=== PATIENT | female | born 1955 | race Hispanic/Latino ===

== ENCOUNTER 2017-10-13 15:08 | Emergency (ER) | payer SELFPAY ==
[2017-10-13 15:08] VITALS: BMI 42.9
[2017-10-13 15:33] VITALS: BP 155/82; PULSE 85; TEMP 98.1; O2SAT 97
[2017-10-13 15:35] VITALS: RESP 16
--- NOTE | 2017-10-13 16:46 | ED PDOC ---
Lower Extremity Pain/Injury Time Seen by Provider: 10/13/17 16:09 Chief Complaint (Nursing): Lower Extremity Problem/Injury History Per: Patient (presents with complaints of knee pain that has been ongoing for one month. States that she had US done at [facility], [place] that did not reveal blood clots. She also had ankle brachial index done what did not reveal pathology. She has not been able to see her PMD. States that Naproxen does not work and that only percocet works.) History/Exam Limitations: no limitations Current Symptoms Are (Timing): Still Present Severity: Moderate Past Medical History Reviewed: Historical Data, Nursing Documentation, Vital Signs Vital Signs: Last Vital Signs Temp 98.1 F 10/13/17 15:33 Pulse 85 10/13/17 15:33 Resp 16 10/13/17 15:33 BP 155/82 H 10/13/17 15:33 Pulse Ox 97 10/13/17 15:33 - Medical History PMH: Anxiety, Arthritis, Asthma, Back Problems, Depression, HTN, Hypercholesterolemia, Hyperlipidemia, Migraine, Chronic Pain (lower back pain/ lumbar radiculopathy) Denies: Chronic Kidney Disease - Surgical History Surgical History: No Surg Hx - Family History Family History: States: Unknown Family Hx - Living Arrangements Living Arrangements: With Family - Immunization History Hx Tetanus Toxoid Vaccination: Yes Hx Influenza Vaccination: Yes Hx Pneumococcal Vaccination: No - Home Medications Home Medications: Ambulatory Orders Medication Instructions Recorded Montelukast [Singulair] 10 mg PO DAILY 12/13/14 Albuterol HFA [Ventolin HFA 90 2 puff IH [id number] 08/25/15 mcg/actuation (8 g)] Diovan 80 mg PO DAILY 06/17/16 oxyCODONE/Acetaminophen [Percocet 1 tab PO Q6 PRN 08/01/16 5/325 mg Tab] Naproxen [Naprosyn] 1 tab PO BID PRN #25 tab 10/10/17 - Allergies Allergies/Adverse Reactions: Allergies Allergy/AdvReac Type Severity Reaction Status Date / Time No Known Allergies Allergy Verified 10/13/17 15:32 Review of Systems ROS Statement: Except As Marked, All Systems Reviewed And Found Negative Constitutional: Negative for: Fever, Chills Musculoskeletal: Positive for: Other (right knee pain) Physical Exam - Reviewed Nursing Documentation Reviewed: Yes Vital Signs Reviewed: Yes - Physical Exam Appears: Positive for: Well, Non-toxic, No Acute Distress Head Exam: Positive for: ATRAUMATIC, NORMAL INSPECTION, NORMOCEPHALIC Skin: Positive for: Normal Color, Warm, DRY Eye Exam: Positive for: EOMI, Normal appearance, PERRL ENT: Positive for: Normal ENT Inspection Neck: Positive for: Normal, Painless ROM Cardiovascular/Chest: Positive for: Regular Rate, Rhythm Respiratory: Positive for: CNT, Normal Breath Sounds Gastrointestinal/Abdominal: Positive for: Normal Exam, Bowel Sounds, Soft Back: Positive for: Normal Inspection Extremity: Positive for: Tenderness (along with knee and upper tibia) Neurologic/Psych: Positive for: Alert, Oriented - ECG O2 Sat by Pulse Oximetry: 97 Disposition - Clinical Impression Clinical Impression: Knee pain, right - Patient ED Disposition Is Patient to be Admitted: Transfer of Care - Disposition Referrals: Shaik Godinez MD [Medical Doctor] - Connor Nesbitt III, MD [Staff Provider] - Disposition: Transfer of Care Disposition Time: 16:48 Condition: STABLE Patient Signed Over To: Sarika Suarez Present On Arrival: None
[2017-10-13] MEDS ORDERED: Oxycodone/Acetaminophen 5/325 mg Tab PO STA (16:52)
[2017-10-13] MEDS ORDERED: Naproxen 500 MG TAB PO ONE ×2 (16:52→16:57)
[2017-10-13] MEDS ORDERED: Oxycodone/Acetaminophen 5/325 mg Tab ONE (16:57)
--- NOTE | 2017-10-13 17:12 | ED PDOC ---
- ECG O2 Sat by Pulse Oximetry: 97 (RA) Pulse Ox Interpretation: Normal Medical Decision Making Medical Decision Making: Time: 17:00 --Patient signed out to me by Dr. Granados pending CT of the leg Time: 18:56 FINDINGS: BONES: There is no acute displaced fracture or bone destruction. Bone alignment is normal. There is diffuse bone demineralization. There is moderate tricompartmental degenerative osteoarthrosis with reduced joint spaces, marginal spurring and tibial spiking, worse in the medial compartment. There is a small suprapatellar joint effusion. SOFT TISSUES: The periarticular soft tissues are normal. IMPRESSION: 1. Moderate tricompartmental degenerative osteoarthrosis, worse in the medial compartment. Small suprapatellar joint effusion. 2. No acute fracture or dislocation. - Documented by Michelle Sanchez acting as a scribe for Sarika Suarez MD. All medical record entries made by the Scribe were at my direction and personally dictated by me. I have reviewed the chart and agree that the record accurately reflects my personal performance of the history, physical exam, medical decision making, and the department course for this patient. I have also personally directed, reviewed, and agree with the discharge instructions and disposition. Disposition Doctor Will See Patient In The: Office Counseled Patient/Family Regarding: Studies Performed, Diagnosis, Need For Followup - Clinical Impression Clinical Impression: Knee pain, right - POA Present On Arrival: None - Disposition Referrals: Shaik Godinez MD [Medical Doctor] - Connor Nesbitt III, MD [Staff Provider] - Disposition: Routine/Home Disposition Time: 19:00 Condition: GOOD Additional Instructions: Take your medications as instructed. Follow up with your PCP in 2-3 days. Prescriptions: Naproxen [Naprosyn] 1 tab PO BID PRN #20 tab PRN Reason: Pain oxyCODONE/Acetaminophen [Percocet 5/325 mg Tab] 1 tab PO Q6 PRN #12 tab PRN Reason: Pain, Moderate (4-7) Instructions: Arthritis (ED) Forms: [facility] ED School/Work Excuse
--- NOTE | 2017-10-13 18:27 | CT ---
PROCEDURE: CT scan of the right knee joint HISTORY: Pain COMPARISON: None available. TECHNIQUE: Contiguous axial images of the right knee were obtained without administration of intravenous contrast. Coronal and sagittal reformats were generated. Radiation dose: 378.[address] exam was performed using one or more of the following dose reduction techniques: Automated exposure control, adjustment of the mA and/or kV according to patient size, and/or use of iterative reconstruction technique. FINDINGS: BONES: There is no acute displaced fracture or bone destruction. Bone alignment is normal. There is diffuse bone demineralization. There is moderate tricompartmental degenerative osteoarthrosis with reduced joint spaces, marginal spurring and tibial spiking, worse in the medial compartment. There is a small suprapatellar joint effusion. SOFT TISSUES: The periarticular soft tissues are normal. IMPRESSION: 1. Moderate tricompartmental degenerative osteoarthrosis, worse in the medial compartment. Small suprapatellar joint effusion. 2. No acute fracture or dislocation.
== END 2017-10-13 19:33 | disposition home or self-care (01) ==
LOC: H.ER 15:08
DX: M25.561 Pain in right knee (principal); E78.00 Pure hypercholesterolemia, unspecified; G89.29 Other chronic pain; I10 Essential (primary) hypertension

== ENCOUNTER 2018-02-24 06:22 | Day surgery (SDC) | payer BC ==
[2018-01-17 13:53] VITALS: BMI 42.9
[2018-02-24 07:11] VITALS: RESP 18
[2018-02-24] MEDS ORDERED: EPINEPHrine 1 mg/ml (1:1000) Inj ONE (07:48)
[2018-02-24] MEDS ORDERED: Lidocaine 2% MPF (5 ml) Inj ONE (07:49)
[2018-02-24] MEDS ORDERED: Bacitracin Ointment 30 GM TUBE ONE (07:49)
--- NOTE | 2018-02-24 07:52 | CP.SDSHP ---
Same Day Surgery H & P - History Proposed Procedure: Right knee arthroscopy, medial/lateral meniscectomy and all indicated procedures Pre-Op Diagnosis: Right knee medial/lateral meniscus tear - Previous Medical/Surgical History Cardiac: Hypertension Pulmonary: Asthma Pain: 6.Severe Pain Previous Surgical History: R shoulder arthroscopy, left knee arthroscopy - Allergies Allergies: Allergies No Known Allergies Allergy (Verified 02/24/18 07:21) verified 08/25/2014 - Current Medications Current Medications: Diovan, singulair, albuterol - Physical Exam General Appearance: NAD Vital Signs: Vital Signs 02/24/18 02/24/18 07:09 07:16 Temperature 98.2 F Pulse Rate 92 H 92 H Respiratory 18 Rate Blood Pressure 132/77 O2 Sat by Pulse 98 Oximetry Mental Status: Alert & Oriented x3 Neuro: WNL Heart: WNL Lungs: WNL GI: WNL - {Optional Preform as Required} Abdomen: WNL Integument: WNL Ortho: Other (Right knee medial joint line pain, ROM 0-80 2nd to pain, mild swelling and effusion, gross NVI intact distally, comps soft NT) ENT: WNL - Impression Impression: Patient is a 62 y/o female c/o of right knee pain which has been progressive over the last 2 months without any instance of injury or trauma. Her pain has been resistant to conservative management with oral medications and exercises. She presents today for right knee arthroscopy. Risks/benefits of procedure were explained in detail. She expresses understanding and agrees to proceed. Pt. Evaluated Today:Candidate for Anesthesia & Procedure: Yes - Date & Time Date: 02/24/18 Time: 07:59 Short Stay Discharge - Short Stay Discharge Admitting Diagnosis/Reason for Visit: S83.281A Disposition: HOME/ ROUTINE Medications: oxyCODONE/Acetaminophen [Percocet 5/325 mg Tab] 1 - 2 ea PO Q4 PRN #30 tab PRN Reason: Pain, Severe (8-10) Referrals: Shaik Godinez MD [Primary Care Provider] -
[2018-02-24] MEDS ORDERED: Succinylcholine 200 mg/10 ml Inj IV ONE (08:36)
[2018-02-24] MEDS ORDERED: Propofol 10 mg/ml Inj (20 ML) ONE (08:36)
[2018-02-24] MEDS ORDERED: Midazolam 2 MG/2 ML VIAL ONE (08:36)
[2018-02-24] MEDS ORDERED: Phenylephrine 10 mg/ml Inj ONE (09:03)
[2018-02-24] MEDS ORDERED: Sevoflurane - Inhalation Anesthetic Liq (250 ml) ONE (09:29)
[2018-02-24] MEDS ORDERED: ePHEDrine 50 mg/ml Inj ONE (09:39)
[2018-02-24] MEDS: MethylPREDNISolone Depo 40 mg/ml Inj ONE ×2 (09:51→10:20)
[2018-02-24] MEDS: Bupivacaine HCl 0.5% PF (10 ml) Inj ONE ×2 (09:51→10:20)
[2018-02-24] MEDS ORDERED: Morphine 1 mg/ml preservative-free Inj(Duramorph) ONE (09:59)
[2018-02-24] MEDS ORDERED: Lactated Ringer's 1,000 ML IV ONE (10:20)
[2018-02-24] MEDS ORDERED: Bacitracin OINT 15GM TOP ONE (10:22)
[2018-02-24] MEDS ORDERED: Oxycodone/Acetaminophen 5/325 mg Tab PO PRN (10:38)
[2018-02-24] MEDS ORDERED: Lactated Ringer's 1,000 ML IV SCH ×2 (10:45)
[2018-02-24] MEDS: HYDROmorphone 0.5 mg/0.5 ml ISec IVP PRN ×2 (10:50→11:40)
[2018-02-24] MEDS ORDERED: HYDROmorphone 0.5 mg/0.5 ml ISec ONE (10:54)
--- NOTE | 2018-02-24 11:44 | PCM.SURG1 ---
Surgeon's Initial Post Op Note - Surgeon's Notes Surgeon: [employer] Consultant: GERA Prado Type of Anesthesia: General Endo Anesthesia Administered By: DR Larios Pre-Operative Diagnosis: Primary O/A Right knee Operative Findings: chondral damage medial / lateral femoral condyles. tricompartmental synovitis. tear medial /tear lateral meniscus Post-Operative Diagnosis: as above Operation Performed: arthroscopic abrasion arthroplasty. arthrosacopic tricompartmental synovectomy. arthoscopic partial medial /klateral meniscectomy. arthroscopic excisison loose body Specimen/Specimens Removed: cartilage /synovium/bone Estimated Blood Loss: EBL {In ML}: 5 Blood Products Given: N/A Drains Used: No Drains Post-Op Condition: Good Date of Surgery/Procedure: 02/24/18 Time of Surgery/Procedure: 09:45 (time in room/aneatshesia indcution time 8:45)
[2018-02-24] MEDS ORDERED: Oxycodone/Acetaminophen 5/325 mg Tab PO ONE (13:34)
[2018-02-24 14:42] VITALS: BP 130/90; PULSE 85; TEMP 98.2; O2SAT 96
--- NOTE | 2018-02-24 16:23 | OP ---
PROCEDURE DATE: 02/24/2018 PREOPERATIVE DIAGNOSES: 1. Primary osteoarthritis of the right knee, most severe medially with chondral damage to the medial femoral condyle. 2. Tricompartmental synovitis. 3. Tear of medial meniscus and tear of lateral meniscus. 4. Loose body, right knee. PROCEDURES PERFORMED: 1. Arthroscopic abrasion arthroplasty/microfracture. 2. Arthroscopic partial tricompartmental synovectomy. 3. Arthroscopic partial medial and lateral meniscectomy. 4. Surgical arthroscopy of the knee, excision of loose bodies. SURGEON: Connor Nesbitt MD PIE TOPPER: Evi Steen, certified registered nursing first breaker feeder. ANESTHESIA: General endotracheal anesthesia. ANESTHESIOLOGIST: Dr. Larios. COMPLICATIONS: No complications. DRAINS: No drains. BLOOD LOSS: 5 mL. OPERATIVE INDICATION: Opal Conte is a patient well known to my practice, who presents with pain and restricted range of motion of the right knee. The patient has had a recent rotator cuff surgery and notes increasing pain in the knee. MRI examination was positive for a tear of the lateral meniscus, tear of the medial meniscus and chondral damage and primary osteoarthritis. Pros, cons, risks and benefits of surgical arthroscopy and microfracture were discussed as well as meniscectomy. The possibility of stiffness, mechanical failure, infection, nerve injury, thromboembolic disease, secondary or tertiary surgery and even was discussed. The option of replacement arthroplasty, which indeed this patient will require at some point because of severity of the arthritic changes was discussed. The patient wishes to attempting a more conservative procedure. OPERATIVE PROCEDURE: After having obtained informed consent in the above fashion, after having identified side, site and procedure and a critical pause/time-out, after the satisfactory induction of the anesthetic by Dr. Larios with general endotracheal anesthesia, the right lower extremity was prepped and free draped in usual fashion for a lower extremity surgery. The tourniquet had been applied, but was not yet inflated. After sterilely prepping and draping, after ensuring padding of all bony prominences, the lower extremity was prepped and free draped in usual fashion for a lower extremity surgery. The knee mckeon was employed. After exsanguinating the limb using a 6-inch Esmarch bandage, the tourniquet, which had been applied, was inflated to 350 mmHg. The joint was insufflated with 10 mL of 1% lidocaine without epinephrine. Using #11 blade, from an anterolateral portal, one thumb's breadth lateral to the inferior pole of the patella. Using #11 blade, followed by spreading, followed by introduction of the blunt trocar, the arthroscope was introduced. It was found to be exuberant synovitis. Triangulation was accomplished using #18-gauge spinal needle. Anteromedial portal was described one thumb's breadth medial to the inferior pole of the patella using #11 blade followed by spreading and introduction of blunt trocar. With the arthroscope anterolaterally, a careful partial tricompartmental synovectomy was accomplished both to improve visualization and to ablate irritative synovitis. Using a combination of the arthroscopic shaver in all three compartments, a careful partial tricompartmental synovectomy was accomplished. This having been accomplished, the arthroscope is now transferred anteromedially. With the surgeon exerting a gentle valgus stress, the medial compartment was exposed. There was found to be a tear of the deep posterior horn of the medial meniscus, but more importantly, there was evidence of significant chondral damage in the area of the medial femoral condyle. Please refer to the video photographs. With the arthroscope transferred back anterolaterally, using a combination of the upbiting basket forceps and the straight biting basket forceps, a partial medial meniscectomy was accomplished. With the arthroscope anterolaterally, with the surgeon exerting a gentle valgus stress, using the arthroscopic shaver, a mechanical chondroplasty was accomplished of the loose articular cartilage fragments and a subchondral bone with the subchondral bone having been released using an arthroscopic pick. With the arthroscope anterolaterally, arthroscopic pick in a honeycomb type fashion is employed. The arthroscopic pick having been employed in a honeycomb type fashion, microfracture/abrasion arthroplasty was accomplished. The microfracture having been accomplished, partial medial meniscectomy having been accomplished, further tricompartmental synovectomy was completed. The arthroscope anterolaterally, with the knee now in [id number] position, there was found to be a severe oblique tear of the lateral meniscus. With the arthroscope anterolaterally, using a combination of the arthroscopic shaver, a partial lateral meniscectomy was accomplished. With the arthroscope anterolaterally, using a combination of the straight biting basket forceps and the side biting basket forceps, a partial lateral meniscectomy was accomplished. The arthroscope was transferred anteromedially and with the knee in [id number] position, partial lateral meniscectomy was completed. The inner free edge was smoothed using the arthroscopic wand. At this point time, there was found to be evidence of chondral damage laterally as well. The arthroscopic pick was used in a honeycomb type fashion to perform a microfracture as well. There was found to be marked arthritic change in the femoral trochlea. Tricompartmental debridement was accomplished using the arthroscopic shaver. The trochlea is debrided as well. Loose cartilaginous fragments were removed and mechanical chondroplasty. At this point in time, there was found to be evidence of loose body in the joint. Loose body was removed. There was evidence of an arthritic spur in the lateral aspect of the medial femoral condyle and that was removed as well. The wound was thoroughly irrigated. Tricompartmental synovectomy was completed. Bleeding points were controlled. The portals were closed with Vicryl and nylon. Intra-articular injection of Marcaine, Duramorph and Depo-Medrol was accomplished. [place] compression dressing and knee immobilizer were applied. Connor Nesbitt MD
== END 2018-02-24 15:00 | disposition home or self-care (01) ==
LOC: H.OPSURG 06:22
PROVIDERS: ATTEND Orthopaedic Surgery
DX: M17.11 Unilateral primary osteoarthritis, right knee (principal); S83.281A Other tear of lateral meniscus, current injury, right knee, initial encounter; S83.241A Other tear of medial meniscus, current injury, right knee, initial encounter; M65.9 Synovitis and tenosynovitis, unspecified; I10 Essential (primary) hypertension; J45.909 Unspecified asthma, uncomplicated
CPT/HCPCS: 29879; 29880; 88305; 97161; G8978; G8979; G8980; J0171; J0330; J0690; J1030; J1170; J2250; J2270; J2370; J2405; J2704; J3010; J7120